=== PATIENT | female | born 1995 | race Caucasian/White ===

== ENCOUNTER → 2017-08-08 | Outpatient (CLI) | payer BC ==
[2015-02-27 02:03] VITALS: BP 118/60
[~2017-08-08] MED LIST: IOHEXOL 240 MG/ML 50ML VIAL. ONE; IOHEXOL 300 MG/ML 75 ML VIAL. IV ONE
--- NOTE | 2017-08-08 14:54 | RAD ---
Indication abdominal pain. History of endometriosis. Axial images through the abdomen and pelvis were obtained. Both oral and IV contrast were administered. Approximately 75 cc of Omnipaque 300 was administered intravenously. Note is made of a previous examination 10/02/2009. The lung bases are unremarkable. The liver and spleen appear unremarkable. The gallbladder is grossly normal. No pancreatic abnormality is seen. The adrenal glands and kidneys appear normal. No focal mass inflammatory process or acute finding is seen. In the pelvis there is a probable cyst associated with the left ovary. There is some free fluid in the pelvis which may reflect a ruptured cyst. There is some suggested complexity of the fluid in the pelvis and a component of blood accounting for some of the fluid is not excluded. An additional finding in the pelvis is not seen. IMPRESSION: Cystic structure in the left adnexa probably reflecting ovary. Moderate amount of complex fluid in the pelvis. Some bleeding in the pelvis is not excluded. Additional evaluation could be obtained with ultrasound if clinically warranted PQRS Compliance Statement: One or more of the following individualized dose reduction techniques were utilized for this examination: 1. Automated exposure control 2. Adjustment of the mA and/or kV according to patient size 3. Use of iterative reconstruction technique
== END | disposition home or self-care (01) ==
LOC: CT 12:51
PROVIDERS: ATTEND Physician Assistant
DX: R10.30 Lower abdominal pain, unspecified (principal); Z87.898 Personal history of other specified conditions
CPT/HCPCS: 74177; Q9966; Q9967

== ENCOUNTER → 2017-08-08 | Outpatient (CLI) | payer BC ==
[2015-02-27 02:03] VITALS: BP 118/60
--- NOTE | 2017-08-08 15:42 | RAD ---
Abdomen, 2 views, 08/08/2017: History: Abdominal pain There is a moderate amount of stool in the colon. The abdominal gas pattern is otherwise unremarkable. No free air is seen in the abdomen. There is no evidence of organomegaly or abnormal abdominal calcification. There is a mild thoracolumbar scoliosis. IMPRESSION: 1. Increased stool in the colon. 2. Otherwise no acute abdominal abnormality is detected.
== END | disposition home or self-care (01) ==
LOC: DXRADRC 11:14
PROVIDERS: ATTEND Physician Assistant
DX: R10.9 Unspecified abdominal pain (principal); M41.85 Other forms of scoliosis, thoracolumbar region
CPT/HCPCS: 74020

== ENCOUNTER → 2018-07-22 | Outpatient (CLI) | payer SELFPAY ==
[2015-02-27 02:03] VITALS: BP 118/60
--- NOTE | 2018-07-22 08:04 | RAD ---
History: Twisted ankle previous day. Bruising. Comparison: None. Findings: AP, lateral, and oblique views of the left ankle, 4 images. No acute fracture or dislocation is identified in the ankle itself. Suboptimally evaluated, there is evidence of mildly displaced distal 5th metatarsal shaft fracture. Impression: 1. 5th metatarsal fracture, presumably acute. 2. No evidence of acute osseous traumatic injury to the ankle. Electronically signed by: Bay Bernardo MD (07/22/2018 7:59 AM) [facility]
== END | disposition home or self-care (01) ==
LOC: RAD 07:17
PROVIDERS: ATTEND Physician Assistant Medical
DX: S92.352A Displaced fracture of fifth metatarsal bone, left foot, initial encounter for closed fracture (principal); X58.XXXA Exposure to other specified factors, initial encounter; Y93.89 Activity, other specified; Y92.89 Other specified places as the place of occurrence of the external cause; Y99.8 Other external cause status
CPT/HCPCS: 73610

== ENCOUNTER → 2019-03-17 | Outpatient (CLI) | payer BC ==
[2015-02-27 02:03] VITALS: BP 118/60
--- NOTE | 2019-03-17 11:31 | RAD ---
PQRS Compliance Statement: One or more of the following individualized dose reduction techniques were utilized for this examination: 1. Automated exposure control 2. Adjustment of the mA and/or kV according to patient size 3. Use of iterative reconstruction technique CT HEAD WITHOUT CONTRAST History: Dizziness Comparison: None. Procedure: Axial images are obtained of the head from the skull base through the vertex without IV contrast. Findings: There is obliquity of the axial plane. This partially contributes to asymmetry of the lateral ventricles. However the right lateral ventricle is larger than the left. The third and fourth ventricles are normal. The sulci are normal for the patient's age. No mass-effect, midline shift, hemorrhage, extra-axial fluid collection, or obvious acute infarction is identified. Basilar cisterns are patent. Bone windows demonstrate no acute calvarial abnormality. The visualized paranasal sinuses are clear. Mastoid air cells are well aerated. IMPRESSION: 1. No acute hemorrhage or evidence of infarct. 2. Asymmetric enlargement of the right lateral ventricle compared to the left. No periventricular white matter abnormality. The third and fourth ventricles are normal. Finding may be congenital or due to remote insult. Electronically signed by: Del Ramsey MD (03/17/2019 11:28 AM) [id number]
== END | disposition home or self-care (01) ==
LOC: CT 10:54
PROVIDERS: ATTEND Registered Nurse
DX: R42 Dizziness and giddiness (principal)
CPT/HCPCS: 70450

== ENCOUNTER → 2019-06-10 | Outpatient (CLI) | payer BC ==
[2015-02-27 02:03] VITALS: BP 118/60
--- NOTE | 2019-06-10 15:47 | CARD ---
MR#: [id number] Date of Study: 06/10/2019 Ordering Physician: CHIKA MAYA, Referring Physician: CHIKA MAYA, Tech: Ana Hedrick ENEIDA APPROVED REPORT EXAM: Two-dimensional and M-mode echocardiogram with Doppler and color Doppler. Other Information Quality : Good INDICATION Dizziness and Vertigo 2D DIMENSIONS RVDd2.0 (2.9-3.5cm)Left Atrium(2D)2.5 (1.6-4.0cm) IVSd0.6 (0.7-1.1cm)Aortic Root(2D)2.5 (2.0-3.7cm) LVDd4.0 (3.9-5.9cm)LVOT Diameter2.0 (1.8-2.4cm) PWd0.7 (0.7-1.1cm)LVDs2.3 (2.5-4.0cm) FS (%) 30.0 %SV53.6 ml LVEF(%)60.0 (>50%) Aortic Valve AoV Peak Dominic.106.8cm/sAoV VTI21.9cm AO Peak GR.4.6mmHgLVOT Peak Dominic.88.9cm/s LVOT VTI 19.11cmAO Mean GR.3mmHg ARTHUR (VMAX)2.72bc7XKM (VTI)2.74cm2 Mitral Valve MV E Xbqduumf047.7cm/sMV DECEL AGUB58nk MV A Kkpuayqv13.8cm/sE/A Ratio1.4 Tricuspid Valve TR P. Mdfwufgf636vs/sRAP ISUOZOQE2hqHy TR Peak Gr.45ayJxUHJX39mgDl Pulmonary Vein S1 Foegphsp76.4cm/sD2 Lpjathwf94.2cm/s LEFT VENTRICLE The left ventricle is normal size. There is normal left ventricular wall thickness. The left ventricu lar systolic function is normal. The Ejection Fraction is 55-60%. There is normal LV segmental wall m otion. The left ventricular diastolic function and filling is normal for age. RIGHT VENTRICLE The right ventricle is normal size. The right ventricular systolic function is normal. ATRIA The left atrium size is normal. The right atrium size is normal. The interatrial septum is intact wit h no evidence for an atrial septal defect or patent foramen ovale as noted on 2-D or Doppler imaging. AORTIC VALVE The aortic valve is normal in structure and function. Doppler and Color Flow revealed no significant aortic regurgitation. There is no significant aortic valvular stenosis. MITRAL VALVE The mitral valve is normal in structure and function. There is no evidence of mitral valve prolapse. There is no mitral valve stenosis. Doppler and Color-flow revealed trace mitral regurgitation. TRICUSPID VALVE The tricuspid valve is normal in structure and function. Doppler and Color Flow revealed trace tricus pid regurgitation. The PA pressure was estimated at 15 mmHg. There is no tricuspid valve stenosis. PULMONIC VALVE The pulmonic valve is not well visualized. Doppler and Color Flow revealed no pulmonic valvular regur gitation. There is no pulmonic valvular stenosis. GREAT VESSELS The aortic root is normal in size. The ascending aorta is normal in size. The IVC is normal in size a nd collapses >50% with inspiration. PERICARDIAL EFFUSION There is no evidence of significant pericardial effusion. Critical Notification Critical Value: No <Conclusion> The left ventricular systolic function is normal. The Ejection Fraction is 55-60%. There is normal LV segmental wall motion. Trace mitral regurgitation. Trace tricuspid regurgitation. The PA pressure was estimated at 15 mmHg. There is no evidence of significant pericardial effusion. Signed by : John Chandler, Electronically Approved : 06/10/2019 15:46:58
== END | disposition home or self-care (01) ==
LOC: ECHO 12:52
PROVIDERS: ATTEND Internal Medicine Cardiovascular Disease
DX: R42 Dizziness and giddiness (principal)
CPT/HCPCS: 93306

== ENCOUNTER → 2021-02-05 | Outpatient (CLI) | payer OTHER ==
[2015-02-27 02:03] VITALS: BP 118/60
--- NOTE | 2021-02-05 12:48 | RAD ---
EXAM: XR LUMBAR SPINE 2-3V 02/05/2021 9:32 AM CLINICAL INDICATION: Low back pain, 2019 COMPARISON: None TECHNIQUE: AP, lateral, and coned-down lateral view of the lumbar spine FINDINGS: There 5 nonrib-bearing lumbar vertebral bodies. No acute fracture. Alignment is normal. Di sc spaces are maintained. Facet joints are normal. IMPRESSION: Normal lumbar spine radiograph. Electronically signed by: Suellen Coleman MD (02/05/2021 12:46 PM) [id number]
== END ==
LOC: RAD 09:17
PROVIDERS: ATTEND Anesthesiology Pain Medicine
DX: M54.5 Low back pain (principal)
CPT/HCPCS: 72100

== ENCOUNTER → 2022-01-19 | Outpatient (CLI) | payer BC ==
[2015-02-27 02:03] VITALS: BP 118/60
--- NOTE | 2022-01-19 12:46 | RAD ---
Two-view chest dated 01/19/2022 12:43 PM Comparison: None CLINICAL INDICATION: Cough FINDINGS: PA and lateral views obtained. Heart and mediastinal contours within normal limits. Lungs are clear. No consolidation or pleural effusion. No pneumothorax. IMPRESSION: No acute radiographic abnormality. Electronically signed by: Bay Miller MD (01/19/2022 12:44 PM) [id number]
== END ==
LOC: RAD 11:47
PROVIDERS: ATTEND Physician Assistant
DX: J40 Bronchitis, not specified as acute or chronic (principal)
CPT/HCPCS: 71046

== ENCOUNTER → 2022-01-28 | Outpatient (CLI) | payer BC ==
[2015-02-27 02:03] VITALS: BP 118/60
--- NOTE | 2022-01-28 16:48 | RAD ---
EXAMINATION: XR CHEST 2V CLINICAL HISTORY: COUGH, SHORTNESS OF BREATH X 3 WEEKS. EXAM DATE/TIME: 01/28/2022 4:35 PM COMPARISON: 01/19/2022 FINDINGS: Lines, Tubes, and Devices: None. Cardiomediastinal Silhouette: Within normal limits. Lungs and Pleura: No evidence of focal airspace consolidation or pleural effusion. Pulmonary vasculat ure unremarkable. Bones and Soft Tissues: No acute osseous abnormality. IMPRESSION: No evidence of acute cardiopulmonary abnormality or significant interval change. Electronically signed by: Harry Lepe DO (01/28/2022 4:46 PM) [id number]
== END ==
LOC: RAD 15:52
PROVIDERS: ATTEND Family Medicine
DX: J06.9 Acute upper respiratory infection, unspecified (principal); R53.83 Other fatigue; R05.9 Cough, unspecified; R06.02 Shortness of breath
CPT/HCPCS: 71046